=== PATIENT | male | born 1955 | race Caucasian/White ===

== ENCOUNTER 2017-02-16 08:36 | Emergency (ER) | payer BC ==
--- OUTSIDE RECORDS SUMMARY | 2017-02-16 08:38 | XMS | Clinical Summary ---
:1955 Author Organization [facility] Address [address] [place] [address] Phone Care Team Providers Name Role Phone , Primary Care Provider Unavailable Allergies Not on File Current Medications Not on file Active Problems Not on file Social History Tobacco Use Types Packs/Day Years Used Date Never Assessed Sex Assigned at Date Recorded Not on file Last Filed Vital Signs Not on file Plan of Treatment Not on file Results Not on filefrom Last 3 Months
[2017-02-16 10:20] LABS: #Basophils 0.1 thou/uL (0.0-0.2); #Eosinphils 0.3 thou/uL (0.0-0.7); #Lymphocytes 1.7 thou/uL (1.20-3.40); #Neutrophils 6.5 thou/uL (1.40-6.50); %Basophils 0.9 % (0.0-1.0); %Eosinophils 2.9 % (0.0-10.0); %Monocytes 10.7 % (0.0-10.0); Hematocrit 52.9 % (42.0-52.0); Mean Platelet Volume 7.5 fL (7.4-10.4); Red Blood Cell (RBC) Count 5.28 mill/uL (4.70-6.10); White Blood Cell (WBC) Count 9.6 thou/uL (4.8-10.8)
[2017-02-16 10:48] LABS: ALT (SGPT) 13 U/L (8-55); AST (SGOT) 21 U/L (5-34); Alkaline Phosphatase 79 U/L (40-150); Anion Gap 13 mmol/L (10-20); BUN (Urea Nitrogen) 10 mg/dL (8.4-25.7); Bilirubin, Total 0.6 mg/dL (0.2-1.2); Calc. Creatinine Clearance 0 mL/min (70-130); Calcium 9.4 mg/dL (7.8-10.44); Carbon Dioxide 27 mmol/L (23-31); Chloride 107 mmol/L (98-107); Estimated GFR-MDRD 69
--- NOTE | 2017-02-16 13:57 | CT ---
CT ABDOMEN NONCONTRAST CT PELVIS NONCONTRAST: (urolithiasis protocol) DATE: 02/16/17 TIME: 1141 HOURS HISTORY: 61-year-old male with acute right flank pain. COMPARISON: 05/12/11. TECHNIQUE: IV injection of iodinated contrast media: none Oral contrast media: none FINDINGS: Other than for urolithiasis, the lack of IV and oral contrast limits the evaluation. There is a new finding of a tiny, 2 mm calculus at the very distal right ureter, several millimeters from its junction with the urinary bladder. This causes a new finding of mild right hydroureteronep hrosis. The urinary bladder is less distended than on the prior study. Normal wall thickness of the urinary bladder. Enlarged prostate. Increased soft tissue density at right inguinal canal may repres ent interval repair of previously demonstrated fat-containing hernia. This could represent scar tiss ue or edema. Large number of diverticula throughout descending colon and sigmoid colon without signs of acute diverticulitis. Suture line along narrowed gastric channel. Large number of small hypodens e lesions throughout much of the liver, stable, consistent with multiple cysts. No calculus identifi ed within the kidneys. No left-sided hydronephrosis. Within the limitations of a noncontrast scan, n o major pathology identified involving abdominal aorta, adrenals, pancreas, or spleen. No small shyam l dilation. No free fluid or free air within abdominal cavity or pelvic cavity. Anterior metallic mosqueda rdware and posterior facet screws, at L5-S1. No consolidation or pleural effusion at lung bases. Nor mal appendix. IMPRESSION: 1. Positive for mild, low grade right obstructive uropathy: tiny 2 mm calculus very close to the ri ght ureterovesical junction causes mild right hydroureteronephrosis. 2. Status post vertical sleeve gastrectomy. 3. Interval development of soft tissue thickening in the right inguinal canal which may be related to previous inguinal hernia repair. 4. Extensive colonic diverticulosis without acute diverticulitis. 5. Enlarged prostate. 6. Fusion hardware at lumbosacral junction. DIXIE Rivera POS: [facility]
== END 2017-02-16 14:06 | disposition home or self-care (01) ==
LOC: ERS 08:36
DX: N13.2 Hydronephrosis with renal and ureteral calculous obstruction (principal); I10 Essential (primary) hypertension; Z79.2 Long term (current) use of antibiotics; Z79.899 Other long term (current) drug therapy
CPT/HCPCS: 36415; 74176; 80053; 85025

== ENCOUNTER 2018-04-20 21:21 | Emergency (ER) | payer BC ==
--- NOTE | 2018-04-20 23:20 | ULT ---
RIGHT UPPER EXTREMITY VENOUS DUPLEX EXAM: HISTORY: Right arm pain and swelling. TECHNIQUE: Real-time color Doppler evaluation of the right upper extremity was performed, to include the interna l jugular, subclavian, axillary, basilic, cephalic, and brachial veins. FINDINGS: This shows a patent deep venous system. There is normal compressibility and augmentation. There is no evidence of DVT. IMPRESSION: No evidence of deep venous thrombosis of the right upper extremity. POS: [facility]
== END 2018-04-20 23:23 | disposition home or self-care (01) ==
LOC: SCSER 21:21
DX: M79.621 Pain in right upper arm (principal); I10 Essential (primary) hypertension
CPT/HCPCS: 93005

== ENCOUNTER 2018-10-20 06:47 | Outpatient (CLI) | payer MEDICARE ==
--- NOTE | 2018-10-20 08:37 | ULT ---
ABDOMINAL AORTIC ULTRASOUND: Date: 10/20/18 INDICATION: Evaluate for abdominal aortic aneurysm. FINDINGS: Proximal abdominal aorta measures 2.0 cm in AP dimension. Mid abdominal aorta measures 1.6 cm. Distal abdominal aorta measures 1.7 cm. Right common iliac measures 1.0 cm. Left common iliac measures 1.0 cm. There is antegrade flow within the aorta. IMPRESSION: No aneurysmal dilatation of the abdominal aorta. POS: [facility]
== END 2018-10-20 06:48 | disposition home or self-care (01) ==
LOC: SCSULT 06:47
PROVIDERS: ATTEND Family Medicine
DX: Z13.6 Encounter for screening for cardiovascular disorders (principal)
CPT/HCPCS: 76706

== ENCOUNTER 2018-11-06 01:48 | Emergency (ER) | payer MEDICARE ==
[2018-11-06 02:10] LABS: #Basophils 0.1 thou/uL (0.0-0.2); #Eosinphils 0.2 thou/uL (0.0-0.7); #Lymphocytes 2.2 thou/uL (1.20-3.40); #Monocytes 0.8 thou/uL (0.11-0.59); #Neutrophils 4.8 thou/uL (1.40-6.50); %Basophils 0.7 % (0.0-1.0); %Eosinophils 2.7 % (0.0-10.0); %Lymphocytes 26.9 % (21.0-51.0); %Monocytes 9.9 % (0.0-10.0); %Neutrophils 59.9 % (42.0-75.0); Hemoglobin 15.5 g/dL (14.0-18.0); Mean Corpuscular HGB CONC 34.3 g/dL (32.0-36.0); Mean Corpuscular Hemoglobin 33.5 pg (27.0-31.0); Mean Corpuscular Volume 97.7 fL (78.0-98.0); Mean Platelet Volume 7.2 fL (7.4-10.4); Platelet Count 225 thou/uL (130-400); RBC Distribution Width 12.1 % (11.5-14.5); Red Blood Cell (RBC) Count 4.64 mill/uL (4.70-6.10); White Blood Cell (WBC) Count 8.1 thou/uL (4.8-10.8)
[2018-11-06 02:33] LABS: ALT (SGPT) 15 U/L (8-55); AST (SGOT) 19 U/L (5-34); Albumin 4.4 g/dL (3.4-4.8); Alkaline Phosphatase 59 U/L (40-150); Anion Gap 12 mmol/L (10-20); BUN (Urea Nitrogen) 15 mg/dL (8.4-25.7); Bilirubin, Total 0.5 mg/dL (0.2-1.2); Calc. Creatinine Clearance 0 mL/min (70-130); Calcium 9.6 mg/dL (7.8-10.44); Carbon Dioxide 27 mmol/L (23-31); Chloride 106 mmol/L (98-107); Estimated GFR-MDRD Greater than 90; Globulin 2.4 g/dL (2.4-3.5); Glucose 79 mg/dL (80-115); Lipase 28 U/L (8-78); Potassium 3.9 mmol/L (3.5-5.1); Protein, Total 6.8 g/dL (5.8-8.1); Sodium 141 mmol/L (136-145)
[2018-11-06] MEDS ORDERED: Ketorolac Tromethamine 30 MG/ML VIAL ONE (03:09)
[2018-11-06 05:48] LABS: Clarity Clear (Clear); Glucose, Urine (Dipstick) Negative (Negative); Leukocyte Negative (Negative); Nitrite Negative (Negative); Protein, Urine (Dipstick) Negative (Neg-Trace); Specific Gravity, Urine 1.015 (1.005-1.030); pH, Urine 8.5 (5.0-9.0)
[2018-11-06 05:49] LABS: Bilirubin Negative (Negative); Blood, Urine Negative (Negative); Urobilinogen 0.2 mg/dL (0.2-1.0)
--- NOTE | 2018-11-06 07:48 | CT ---
PRELIMINARY REPORT/[facility]/EMERGENCY AFTER HOURS PROCEDURE: EXAM: CT Abdomen and Pelvis Without Contrast EXAM DATE/TIME: 11/06/2018 2:48 AM CLINICAL HISTORY: 63 years old, male; Abdominal pain; Acute; Patient HX: PT reports right side pain radiating to rlq an d then right lower back worse with movement. PT reprost pain x a fews weeks wores the past couple nig hts TECHNIQUE: Imaging protocol: Axial computed tomography images of the abdomen and pelvis without contrast. COMPARISON: No relevant prior studies available. FINDINGS: Mediastinum: There is a small hiatal hernia. Liver: Multiple probable liver cysts measure up to 2.3 cm. Gallbladder and bile ducts: Normal. No calcified stones. No ductal dilation. Pancreas: Normal. No ductal dilation. Spleen: Normal. Adrenals: Normal. Kidneys and ureters: Normal. No hydronephrosis. Stomach and bowel: There is evidence of gastric sleeve surgery. Diverticulosis is identified in the colon. Appendix: The appendix is unremarkable. Intraperitoneal space: Unremarkable. No free fluid or free air. No fluid collection. Vasculature: Normal. No abdominal aortic aneurysm. Lymph nodes: Normal. No enlarged lymph nodes. Bladder: Unremarkable as visualized. Reproductive: Unremarkable as visualized. Bones/joints: There are degenerative changes in the spine. There are fixator screws at the L5-S1 level. Soft tissues: A small left inguinal hernia contains fat. A small hernia in the umbilical area contain s fat. There are surgical clips in the pelvis. IMPRESSION: No acute abnormality identified. Thank you for allowing us to participate in the care of your patient. Dictated and Authenticated by: Rodney Garcia MD 11/06/2018 5:17 AM Central Time ([place] & [facility]) FINAL REPORT EMERGENT AFTER HOURS CT OF THE ABDOMEN AND PELVIS WITHOUT CONTRAST: FINDINGS/IMPRESSION: I agree with the findings and impression given in the preliminary report per [facility] physician. 1. No evidence of acute intraabdominal/pelvic abnormality. 2. Hepatic cysts. 3. Diverticulosis. POS: [facility]
== END 2018-11-06 06:05 | disposition home or self-care (01) ==
LOC: ERS 01:48
DX: R10.9 Unspecified abdominal pain (principal); I10 Essential (primary) hypertension; Z79.899 Other long term (current) drug therapy
CPT/HCPCS: 36415; 74176; 80053; 81003; 83690; 85025; 96361; 96374; J1885

== ENCOUNTER 2018-11-16 06:41 | Outpatient (CLI) | payer MEDICARE ==
--- NOTE | 2018-11-16 08:04 | ULT ---
Exam: Right upper quadrant ultrasound: HISTORY: Right upper quadrant abdominal pain. COMPARISON: CT abdomen on 11/06/2018. FINDINGS: Liver: Portions of the liver are obscured due to shadowing from bowel gas. There are a few scattered anechoic areas seen within the right as well as left hepatic lobes with largest at anechoic structure seen in the right hepatic lobe measuring 1.8 cm. Sonographic characteristics are most sugge stive of cysts. These lesions were also seen on CT scan 11/06/2018 which are unchanged compared to CT on 02/16/2017 also suggesting benign findings and likely cysts. Gallbladder: There is echogenic material seen within the gallbladder lumen most compatible with sludg e. There are 2 small echogenic adherent foci along the gallbladder wall each measuring approximately 3 mm likely related to small gallbladder polyps. No gallbladder calculi are seen. Common bile duct: The common duct is normal in caliber measuring 0.3 cm in diameter. Pancreas: Pancreas is obscured by shadowing from bowel gas and not well evaluated on this exam. Right kidney: There is a small echogenic focus seen within the peripheral cortex at the junction of t he midportion and superior pole right kidney likely related to a junctional parenchymal defect. The right kidney has a normal sonographic appearance and measures 12 cm in length. IVC: The visualized IVC demonstrates a normal sonographic appearance. IMPRESSION: 1. Limited examination as described above. 2. Gallbladder sludge as well as gallbladder polyps. No gallbladder calculi are seen. The common duct is normal in caliber. 3. Hepatic cysts.
== END 2018-11-16 06:42 | disposition home or self-care (01) ==
LOC: SCSULT 06:41
PROVIDERS: ATTEND Family Medicine
DX: R10.11 Right upper quadrant pain (principal); K82.4 Cholesterolosis of gallbladder; K82.8 Other specified diseases of gallbladder; K76.89 Other specified diseases of liver
CPT/HCPCS: 76705

== ENCOUNTER 2018-11-23 02:59 | Emergency (ER) | payer MEDICARE ==
[2018-11-23 03:44] LABS: #Basophils 0.1 thou/uL (0.0-0.2); #Eosinphils 0.2 thou/uL (0.0-0.7); #Lymphocytes 1.5 thou/uL (1.20-3.40); #Monocytes 0.5 thou/uL (0.11-0.59); #Neutrophils 3.3 thou/uL (1.40-6.50); %Basophils 0.9 % (0.0-1.0); %Eosinophils 3.8 % (0.0-10.0); %Lymphocytes 26.3 % (21.0-51.0); %Neutrophils 59.9 % (42.0-75.0); Hemoglobin 14.6 g/dL (14.0-18.0); Mean Corpuscular HGB CONC 34.9 g/dL (32.0-36.0); Mean Corpuscular Hemoglobin 34.1 pg (27.0-31.0); Mean Corpuscular Volume 97.5 fL (78.0-98.0); Mean Platelet Volume 7.5 fL (7.4-10.4); Platelet Count 206 thou/uL (130-400); RBC Distribution Width 12.2 % (11.5-14.5); Red Blood Cell (RBC) Count 4.29 mill/uL (4.70-6.10); White Blood Cell (WBC) Count 5.5 thou/uL (4.8-10.8)
[2018-11-23] MEDS ORDERED: Fentanyl 100 MCG/2 ML VIAL ONE ×2 (03:47→05:33)
[2018-11-23 04:12] LABS: ALT (SGPT) 14 U/L (8-55); AST (SGOT) 17 U/L (5-34); Albumin 4.1 g/dL (3.4-4.8); Alkaline Phosphatase 54 U/L (40-150); Anion Gap 12 mmol/L (10-20); BUN (Urea Nitrogen) 14 mg/dL (8.4-25.7); Bilirubin, Total 0.5 mg/dL (0.2-1.2); Calc. Creatinine Clearance 0 mL/min (70-130); Calcium 9.3 mg/dL (7.8-10.44); Carbon Dioxide 27 mmol/L (23-31); Chloride 106 mmol/L (98-107); Estimated GFR-MDRD Greater than 90; Globulin 2.3 g/dL (2.4-3.5); Glucose 90 mg/dL (80-115); Lipase 23 U/L (8-78); Potassium 3.7 mmol/L (3.5-5.1); Protein, Total 6.4 g/dL (5.8-8.1); Sodium 141 mmol/L (136-145)
[2018-11-23] MEDS ORDERED: Dicyclomine 20 MG TAB ONE (05:38)
[2018-11-23 06:23] LABS: Bilirubin Negative (Negative); Blood, Urine Negative (Negative); Clarity Clear (Clear); Glucose, Urine (Dipstick) Normal (Negative); Leukocyte Negative Leu/uL (Negative); Nitrite Negative (Negative); Protein, Urine (Dipstick) Negative (Neg-Trace); Urobilinogen Normal mg/dL (Less than 2)
== END 2018-11-23 06:50 | disposition home or self-care (01) ==
LOC: ERS 02:59
DX: R10.11 Right upper quadrant pain (principal); I10 Essential (primary) hypertension; Z79.899 Other long term (current) drug therapy
CPT/HCPCS: 36415; 80053; 81003; 83690; 85025; 96374; 96376; J3010

== ENCOUNTER 2018-11-24 10:04 | Outpatient (CLI) | payer MEDICARE ==
--- NOTE | 2018-11-25 17:10 | EKG ---
Test Reason : Blood Pressure : / mmHG Vent. Rate : 047 BPM Atrial Rate : 047 BPM P-R Int : 174 ms QRS Dur : 094 ms QT Int : 442 ms P-R-T Axes : 065 -62 017 degrees QTc Int : 391 ms Marked sinus bradycardia Left anterior fascicular block Cannot rule out Anterior infarct , age undetermined Abnormal ECG Confirmed by MIESHA HUERTA ([id number]) on 11/25/2018 5:10:27 PM Referred By: DANTE Confirmed By:MIESHA HUERTA
== END 2018-11-24 10:05 | disposition home or self-care (01) ==
LOC: LABBT 10:04
PROVIDERS: ATTEND Surgery
DX: Z01.810 Encounter for preprocedural cardiovascular examination (principal); K81.1 Chronic cholecystitis
CPT/HCPCS: 93005; 93010

== ENCOUNTER 2018-11-27 10:28 | Day surgery (SDC) | payer MEDICARE ==
[2018-11-24 10:17] VITALS: BMI 29.4
[2018-11-27] MEDS ORDERED: Sodium Chloride 0.9% 100 ML ONE (11:08)
[2018-11-27] MEDS ORDERED: cefOXitin 2 GM VIAL ONE (11:08)
[2018-11-27] MEDS ORDERED: Midazolam HCl 2 mg/2 ml Vial ONE (11:40)
[2018-11-27] MEDS ORDERED: Fentanyl 100 MCG/2 ML VIAL ONE ×3 (11:40→13:23)
[2018-11-27] MEDS ORDERED: Bupivacaine/Epinephrine 0.25% 30 ML VIAL ONE (11:40)
[2018-11-27] MEDS ORDERED: Morphine 4 MG/ML VIAL ONE (13:45)
[2018-11-27] MEDS ORDERED: Morphine 2 MG/ML SYRINGE ONE (13:56)
[2018-11-27] MEDS ORDERED: ePHEDrine 50 MG/ML VIAL ONE (14:38)
[2018-11-27] MEDS ORDERED: Dexamethasone 20 MG/5 ML VIAL ONE (14:38)
[2018-11-27] MEDS ORDERED: Lidocaine 1% PF 5 ML VIAL ONE (14:38)
[2018-11-27] MEDS ORDERED: Rocuronium Bromide 10 MG/ML (10ML VIAL) ONE (14:38)
[2018-11-27] MEDS ORDERED: PROPOFOL 200 MG/20 ML VIAL ONE (14:38)
[2018-11-27] MEDS ORDERED: Ondansetron PF 4 MG/2 ML Vial ONE (14:38)
[2018-11-27] MEDS ORDERED: Glycopyrrolate 0.2 MG/ML 5 ML SYRINGE ONE (14:38)
--- NOTE | 2018-11-30 09:30 | OP ---
DATE OF PROCEDURE: 11/27/2018 PREOPERATIVE DIAGNOSIS: Chronic cholecystitis. PROCEDURE PERFORMED: Laparoscopic cholecystectomy. INDICATIONS: A 63-year-old male who has been having episodic right upper quadrant pain worse after eating, especially fatty food. Ultrasound showed sludge and some possible echogenic foci near the neck of the gallbladder. FINDINGS: There were some mild adhesions to the gallbladder. The cystic duct was very small caliber. DESCRIPTION OF PROCEDURE: After informed consent was obtained, the patient was taken to the operating room, given general endotracheal anesthesia, placed in the supine position. Abdomen was prepped and draped in usual fashion. Local anesthesia was infiltrated subcutaneously and deep. A subumbilical incision was performed. Subcu divided sharply. The fascia was grasped. Two stay sutures of 0 Vicryl placed in each side of midline. Midline incised. Digital palpation revealed no local adhesions. A blunt 12 mm trocar inserted. Pneumoperitoneum was created to a pressure of 15 mmHg. Zero-degree laparoscope inserted under direct vision. Three 5 mm ports were placed subcostally. Gallbladder was grasped and advanced superiorly. Peritoneum lysed distally to expose the cystic duct, artery in critical view. The duct and artery triply ligated with hemoclips and divided. The gallbladder removed from its fossa utilizing electrocautery, removed from the abdomen through the umbilical port. Hemostasis assured. Trocars and retractors removed. The fascia closed with interrupted 0 Vicryl suture. The skin closed with interrupted 4-0 Rapide. Dermabond applied. The patient tolerated the procedure well, transferred to Recovery in good condition. Sponge and needle counts verified correct x2. Job ID: [id number]
== END 2018-11-27 15:35 | disposition home or self-care (01) ==
LOC: SDC 10:28
PROVIDERS: ATTEND Surgery
PROC: 0FT44ZZ Resection of Gallbladder, Percutaneous Endoscopic Approach (ICD-10-PCS; principal; 2018-11-27)
DX: K81.1 Chronic cholecystitis (principal); K82.8 Other specified diseases of gallbladder; I10 Essential (primary) hypertension; E66.01 Morbid (severe) obesity due to excess calories; G47.33 Obstructive sleep apnea (adult) (pediatric); Z68.29 Body mass index [BMI] 29.0-29.9, adult; Z87.891 Personal history of nicotine dependence; Z79.899 Other long term (current) drug therapy
CPT/HCPCS: 88304; J0694; J2250; J2270; J3010; J3490

== ENCOUNTER 2021-06-06 15:14 | Inpatient (IN) | payer MEDICARE, OTHER ==
[~2021-06-06 15:14] MED LIST: Iopamidol 370 76% 100 ML VIAL ONE
[2021-06-06 15:58] LABS: #Eosinphils 0.1 thou/uL (0.0-0.7); #Lymphocytes 1.4 thou/uL (1.20-3.40); #Monocytes 0.9 thou/uL (0.11-0.59); #Neutrophils 6.1 thou/uL (1.40-6.50); %Basophils 0.5 % (0.0-1.0); %Eosinophils 1.2 % (0.0-10.0); %Lymphocytes 16.5 % (21.0-51.0); %Monocytes 10.1 % (0.0-10.0); %Neutrophils 71.6 % (42.0-75.0); Hemoglobin 15.5 g/dL (14.0-18.0); Mean Corpuscular HGB CONC 33.6 g/dL (32.0-36.0); Mean Corpuscular Hemoglobin 32.8 pg (27.0-31.0); Mean Corpuscular Volume 97.5 fL (78.0-98.0); Mean Platelet Volume 7.5 fL (7.4-10.4); Platelet Count 230 thou/uL (130-400); Red Blood Cell (RBC) Count 4.72 mill/uL (4.70-6.10); White Blood Cell (WBC) Count 8.5 thou/uL (4.8-10.8)
[2021-06-06 16:19] LABS: ALT (SGPT) 12 U/L (8-55); AST (SGOT) 16 U/L (5-34); Alkaline Phosphatase 66 U/L (40-110); Anion Gap 15 mmol/L (10-20); BUN (Urea Nitrogen) 14 mg/dL (8.4-25.7); Bilirubin, Total 0.5 mg/dL (0.2-1.2); Calc. Creatinine Clearance 0 mL/min (70-130); Calcium 9.2 mg/dL (7.8-10.44); Carbon Dioxide 24 mmol/L (23-31); Chloride 106 mmol/L (98-107); Globulin 2.7 g/dL (2.4-3.5); Glucose 97 mg/dL (80-115); Lipase 13 U/L (8-78); Potassium 4.3 mmol/L (3.5-5.1); Protein, Total 6.7 g/dL (5.8-8.1); Sodium 141 mmol/L (136-145)
[2021-06-06] MEDS ORDERED: Morphine 4 MG/ML VIAL ONE (17:44)
[2021-06-06] MEDS ORDERED: Lorazepam 2 MG/ML VIAL ONE (18:31)
[2021-06-06] MEDS ORDERED: diphenhydrAMINE 50 MG/ML VIAL ONE (18:31)
[2021-06-06] MEDS ORDERED: Ketorolac Tromethamine 30 MG/ML VIAL ONE ×2 (18:31→20:56)
[2021-06-06] MEDS ORDERED: Aspirin 325 MG TAB ONE (18:34)
[2021-06-06] MEDS ORDERED: Ondansetron PF 4 MG/2 ML Vial IVP PRN (20:45)
[2021-06-06] MEDS ORDERED: Ondansetron ODT 4 MG TAB SL PRN (20:45)
[2021-06-06] MEDS ORDERED: Acetaminophen 325 MG TAB PO PRN (20:45)
[2021-06-06 21:12] LABS: Troponin I Less than 0.010 ng/mL (< 0.028)
[2021-06-06 22:30] LABS: Bilirubin Negative (Negative); Blood, Urine Negative (Negative); Clarity Clear (Clear); Glucose, Urine (Dipstick) Normal (Negative); Ketone, Urine Trace mg/dL (Negative); Leukocyte Negative Leu/uL (Negative); Nitrite Negative (Negative); Protein, Urine (Dipstick) Negative (Neg-Trace); Urobilinogen Normal mg/dL (Less than 2); pH, Urine 5.5 (5.0-9.0)
[2021-06-06 22:41] LABS: Specific Gravity, Urine 1.055 (1.002-1.036)
[2021-06-06 23:49] LABS: Troponin I Less than 0.010 ng/mL (< 0.028)
[2021-06-07 00:45] VITALS: BMI 32.7
[2021-06-07] MEDS ORDERED: Ketorolac Tromethamine 30 MG/ML VIAL IVP SCH (01:45)
[2021-06-07] MEDS ORDERED: Ondansetron ODT 4 MG TAB PO PRN (09:38)
[2021-06-07] MEDS ORDERED: Ondansetron PF 4 MG/2 ML Vial IVP PRN (09:38)
[2021-06-07] MEDS ORDERED: Acetaminophen 325 MG TAB PO PRN (09:38)
[2021-06-07] MEDS ORDERED: Senokot S 8.6-50 MG TAB PO PRN (09:38)
[2021-06-07 12:31] LABS: SARS-CoV-2 PCR by NAA Not Detected (NotDetected)
[2021-06-07] MEDS: Ibuprofen 600 MG TAB PO SCH ×2 (14:27→21:22)
[2021-06-07] MEDS ORDERED: hydrALAZINE 20 MG/ML VIAL SLOW IVP PRN (18:59)
[2021-06-07] MEDS ORDERED: Famotidine 20 MG TAB PO SCH (21:00)
[2021-06-07] MEDS: Acetaminophen/Codeine 30-300mg Tablet PO PRN (21:22)
[2021-06-08 05:33] LABS: #Eosinphils 0.2 thou/uL (0.0-0.7); #Lymphocytes 1.4 thou/uL (1.20-3.40); #Monocytes 0.7 thou/uL (0.11-0.59); #Neutrophils 4.5 thou/uL (1.40-6.50); %Basophils 0.4 % (0.0-1.0); %Eosinophils 3.5 % (0.0-10.0); %Lymphocytes 20.1 % (21.0-51.0); %Monocytes 10.1 % (0.0-10.0); %Neutrophils 65.8 % (42.0-75.0); Hemoglobin 14.2 g/dL (14.0-18.0); Mean Corpuscular Hemoglobin 32.1 pg (27.0-31.0); Mean Corpuscular Volume 97.3 fL (78.0-98.0); Mean Platelet Volume 7.8 fL (7.4-10.4); Platelet Count 197 thou/uL (130-400); Red Blood Cell (RBC) Count 4.41 mill/uL (4.70-6.10); White Blood Cell (WBC) Count 6.8 thou/uL (4.8-10.8)
[2021-06-08 05:53] LABS: ALT (SGPT) 80 U/L (8-55); AST (SGOT) 50 U/L (5-34); Albumin 3.4 g/dL (3.4-4.8); Alkaline Phosphatase 100 U/L (40-110); Anion Gap 11 mmol/L (10-20); BUN (Urea Nitrogen) 11 mg/dL (8.4-25.7); Bilirubin, Total 0.7 mg/dL (0.2-1.2); Calc. Creatinine Clearance 134 mL/min (70-130); Calcium 8.6 mg/dL (7.8-10.44); Carbon Dioxide 28 mmol/L (23-31); Chloride 105 mmol/L (98-107); Globulin 2.2 g/dL (2.4-3.5); Glucose 91 mg/dL (80-115); Potassium 3.8 mmol/L (3.5-5.1); Protein, Total 5.6 g/dL (5.8-8.1); Sodium 140 mmol/L (136-145)
[2021-06-08] MEDS ORDERED: hydrALAZINE 20 MG/ML VIAL SLOW IVP PRN (08:30)
[2021-06-08] MEDS ORDERED: Lisinopril/Hydrochlorothiazide 20 mg/12.5 mg Tablet PO SCH ×2 (09:00)
[2021-06-08] MEDS ORDERED: Aspirin 81 mg Enteric Coated Tablet PO SCH (09:00)
[2021-06-08] MEDS: Ibuprofen 600 MG TAB PO SCH ×2 (10:02→13:35)
[2021-06-08] MEDS ORDERED: hydrALAZINE 25 MG TAB PO SCH ×2 (13:15→21:00)
[2021-06-08] MEDS ORDERED: Amoxicillin/Potassium Clav 875 MG TAB PO SCH ×2 (13:30→21:00)
[2021-06-08] MEDS: Acetaminophen/Codeine 30-300mg Tablet PO PRN (13:32)
[2021-06-08] MEDS ORDERED: Amlodipine 5 MG TAB PO SCH (15:00)
[2021-06-08 16:04] VITALS: BP 145/74; TEMP 97.8
[2021-06-09] MEDS ORDERED: Amlodipine 5 MG TAB PO SCH (09:00)
== END 2021-06-08 16:06 | disposition home or self-care (01) | DRG 395 ==
LOC: ERS 15:14 → ERHOLD 20:19 → 2NO 23:39 → OBSVTOIN 06-08 09:54
PROVIDERS: ADMIT Student in an Organized Health Care Education/Training Program; ATTEND Internal Medicine
DX: K63.89 Other specified diseases of intestine (principal); I10 Essential (primary) hypertension; I08.1 Rheumatic disorders of both mitral and tricuspid valves; R07.89 Other chest pain; E66.9 Obesity, unspecified; K57.90 Diverticulosis of intestine, part unspecified, without perforation or abscess without bleeding; Z20.822 Contact with and (suspected) exposure to COVID-19; Z86.16 Personal history of COVID-19; Z68.32 Body mass index [BMI] 32.0-32.9, adult; Z90.49 Acquired absence of other specified parts of digestive tract; Z79.82 Long term (current) use of aspirin; Z79.899 Other long term (current) drug therapy; Z86.73 Personal history of transient ischemic attack (TIA), and cerebral infarction without residual deficits
CPT/HCPCS: 36415; 71045; 74177; 80053; 81003; 83690; 83735; 84443; 84484; 85025; 93005; 93306; 96375; 96376; G0378; J0360; J1200; J1885; J2060; J2270; Q9967; U0003; U0005